=== PATIENT | female | born 1985 | race Caucasian/White ===

== ENCOUNTER → 2016-08-06 | Outpatient (CLI) | payer OTHER | LOC: KOH-I 13:18 | DX: R10.32 Left lower quadrant pain (principal); R30.0 Dysuria; R31.9 Hematuria, unspecified; Z90.49 Acquired absence of other specified parts of digestive tract; Z98.51 Tubal ligation status | CPT/HCPCS: 74176 ==

== ENCOUNTER 2020-07-05 11:59 | Emergency (ER) | payer OTHER ==
[2020-07-05 13:03] LABS: HEMOGLOBIN 13.1 gm/dl (12.3-15.3); RED BLOOD COUNT 4.78 M/UL (4.00-5.10); WHITE BLOOD COUNT 5.7 K/UL (4.5-11.0)
[2020-07-05 13:29] LABS: BUN/CREATININE RATIO 13 (0-10)
== END 2020-07-06 00:17 | disposition home or self-care (01) ==
LOC: ER1 11:59
PROVIDERS: Emergency Medicine
DX: R10.9 Unspecified abdominal pain (principal); R11.0 Nausea; Z20.822 Contact with and (suspected) exposure to COVID-19; Z90.49 Acquired absence of other specified parts of digestive tract; Z90.89 Acquired absence of other organs; Z88.1 Allergy status to other antibiotic agents
CPT/HCPCS: 36415; 80053; 81001; 83690; 84703; 85025; 87635; 96365; 96375; 96376; 99284; J2270; J2405; J7030; Q9967

== ENCOUNTER 2021-02-25 10:23 | Emergency (ER) | payer OTHER ==
[~2021-02-25] VITALS: Ht 167.6 cm; Wt 112.9 kg
== END 2021-02-25 13:40 | disposition home or self-care (01) ==
LOC: ER1 10:23
DX: U07.1 COVID-19 (principal); Z23 Encounter for immunization; Z88.1 Allergy status to other antibiotic agents; Z88.8 Allergy status to other drugs, medicaments and biological substances
CPT/HCPCS: 99283; M0243

== ENCOUNTER → 2021-04-29 | Outpatient (CLI) | payer OTHER ==
[2021-04-29 06:43] LABS: HEMOGLOBIN 12.4 gm/dl (12.3-15.3); RED BLOOD COUNT 4.56 M/UL (4.00-5.10); WHITE BLOOD COUNT 4.8 K/UL (4.5-11.0)
[2021-04-29 07:05] LABS: BUN/CREATININE RATIO 12 (0-10)
== END ==
LOC: LAB 06:08
PROVIDERS: Internal Medicine
DX: K50.019 Crohn's disease of small intestine with unspecified complications (principal)
CPT/HCPCS: 36415; 80053; 83993; 85025; 85652; 86140; 87045; 87046; 87449; 89055

== ENCOUNTER 2021-07-03 09:31 | Emergency (ER) | payer OTHER ==
[2021-07-03 10:13] LABS: HEMOGLOBIN 12.4 gm/dl (12.3-15.3); RED BLOOD COUNT 4.6 M/UL (4.00-5.10); WHITE BLOOD COUNT 5.1 K/UL (4.5-11.0)
[2021-07-03 10:45] LABS: BUN/CREATININE RATIO 12 (0-10)
[2021-07-03] MEDS ORDERED: OMNICEF 300 MG300 MG PO (13:40)
[2021-07-03] MEDS ORDERED: TORADOL 10 MG T10 MG PO (13:40)
[2021-07-03] MEDS ORDERED: ZOFRAN 4 MG TAB4 MG PO (13:40)
[2021-07-03] MEDS ORDERED: FLOMAX 0.4 MG0.4 MG PO (13:48)
[2021-07-03] MEDS ORDERED: HYDROCODON-ACE1 EAC4 PO (13:49)
== END 2021-07-03 14:16 | disposition home or self-care (01) ==
LOC: ER1 09:31
PROVIDERS: Physician Assistant
DX: N13.6 Pyonephrosis (principal); I10 Essential (primary) hypertension
CPT/HCPCS: 80053; 81001; 83690; 84703; 85025; 87086; 96374; 96375; 99284; J0696; J1885; J2405; Q9967

== ENCOUNTER 2021-09-28 12:05 | Observation (INO) | payer OTHER ==
[~2021-09-28] VITALS: Ht 167.6 cm; Wt 118.1 kg
[~2021-09-28 12:05] MED LIST: FLOMAX 0.4 MG0.4 MG PO; HYDROCODON-ACE1 EAC4 PO; OMNICEF 300 MG300 MG PO; TORADOL 10 MG T10 MG PO; ZOFRAN 4 MG TAB4 MG PO
[2021-09-28 12:55] LABS: HEMOGLOBIN 10.4 gm/dl (12.3-15.3)
[2021-09-28 13:20] LABS: BUN/CREATININE RATIO 8 (0-10)
[2021-09-28] MEDS ORDERED: ROBAXIN 750 MG750 MG PO (22:51)
[2021-09-28] MEDS ORDERED: BENTYL 20MG TAB20 MG PO (22:51)
[2021-09-28] MEDS ORDERED: HYDROCHLOROTH12.5 MG PO (22:52)
[2021-09-28] MEDS ORDERED: LISINOPRIL5 MG PO (22:52)
[2021-09-28] MEDS ORDERED: ZYRTEC10 MG PO (22:52)
[2021-09-29 03:08] LABS: HEMOGLOBIN 9.7 gm/dl (12.3-15.3); RED BLOOD COUNT 3.73 M/UL (4.00-5.10); WHITE BLOOD COUNT 8.7 K/UL (4.5-11.0)
[2021-09-29 03:37] LABS: BUN/CREATININE RATIO 6 (0-10)
[2021-09-29] MEDS ORDERED: CYANOCOBAL1000 MCG/1 INJ (09:48)
[2021-09-29] MEDS ORDERED: PHENERGAN 25 MG25 M1 PO (09:49)
[2021-09-29] MEDS ORDERED: KENALOG CR 0.0215 GM TOP (09:49)
[2021-09-29] MEDS ORDERED: CEFDINIR300 MG PO (09:50)
--- NOTE | 2021-09-29 12:14 | NUR ---
dr. ramírez was on the floor and seen patient and received instructions if patient james clear liquid to advance diet as tolerated and patient may d/c later. informed dr. ramírez patient have 3 bm
== END 2021-09-29 15:03 | disposition home or self-care (01) ==
LOC: ER1 12:05 → CDU 15:59 → M/S 15:59
PROVIDERS: Internal Medicine; Physician Assistant Medical; ADMIT Internal Medicine Infectious Disease
DX: K56.609 Unspecified intestinal obstruction, unspecified as to partial versus complete obstruction (principal); K50.90 Crohn's disease, unspecified, without complications; I10 Essential (primary) hypertension; D64.9 Anemia, unspecified; D75.839 Thrombocytosis, unspecified; E66.01 Morbid (severe) obesity due to excess calories; Z68.41 Body mass index [BMI] 40.0-44.9, adult; Z87.19 Personal history of other diseases of the digestive system; Z88.1 Allergy status to other antibiotic agents; Z88.8 Allergy status to other drugs, medicaments and biological substances; Z79.899 Other long term (current) drug therapy
CPT/HCPCS: 36415; 80053; 81001; 83605; 83735; 84100; 84702; 85025; 85652; 86140; 87040; 87086; 96374; 96375; 99285; G0378; J2270; J2405; J2920; J3420; J7030; Q9967

== ENCOUNTER → 2021-11-24 | Outpatient (CLI) | payer OTHER ==
[~2021-11-24] MED LIST changes: +BENTYL 20MG TAB20 MG PO; +CEFDINIR300 MG PO; +CYANOCOBAL1000 MCG/1 INJ; +HYDROCHLOROTH12.5 MG PO; +KENALOG CR 0.0215 GM TOP; +LISINOPRIL5 MG PO; +PHENERGAN 25 MG25 M1 PO; +ROBAXIN 750 MG750 MG PO; +ZYRTEC10 MG PO
== END ==
LOC: HEART 5 14:30
DX: R00.2 Palpitations (principal)

== ENCOUNTER 2021-12-18 06:44 | Emergency (ER) | payer OTHER | END 2021-12-18 08:45 | disposition home or self-care (01) | LOC: ER1 06:44 | DX: Z43.2 Encounter for attention to ileostomy (principal); I10 Essential (primary) hypertension | CPT/HCPCS: 99282 ==